=== PATIENT | male | born 1960 | race Caucasian/White ===

== ENCOUNTER → 2017-06-06 | Emergency (ER) | payer BC ==
[~2017-06-06] VITALS: Ht 180.3 cm; Wt 90.7 kg
[~2017-06-06] MED LIST: ACETAMINOPHEN/CODEINE ELIX 120-12 MG/5 ML UDC PO ONE; ALBUTEROL SULF 0.083% NEB SOLN 3 ML NEB NEB STA; CEFTRIAXONE SOD 1 GM VIAL IV ONE; DEXAMETHASONE SOD PHOS 10 MG/1 ML VIAL INJ ONE; IPRATROPIUM BROMIDE 0.02% 2.5 ML NEB NEB STA; PRAVASTATIN PO; SODIUM CHLORIDE 0.9% 1000ML 1,000 ML IV STA; TAMSULOSIN 0.4 MG; WARFARIN PO
[2017-06-06 15:08] LABS: BASOPHILS % 0.2 % (0.0-1.0); HEMATOCRIT 43.8 % (38.2-49.6); HEMOGLOBIN 14.7 g/dL (14.0-18.0); LYMPHOCYTES # (AUTO) 1.3 (1.0-3.2); LYMPHOCYTES % 30.9 % (18.0-39.1); MEAN CORPUSCULAR HEMOGLOBIN 32.4 pg (28-32); MEAN CORPUSCULAR HGB CONC 33.6 g/dL (31-35); MEAN CORPUSCULAR VOLUME 96.5 fL (81-99); MONOCYTES # (AUTO) 0.3 (0.2-0.8); MONOCYTES % 6.2 % (4.4-11.3); NEUTROPHILS # (AUTO) 2.6 (2.1-6.9); NEUTROPHILS % 62.2 % (38.7-80.0); PLATELET COUNT 101 x10e3/uL (140-360); RED BLOOD COUNT 4.54 x10e6/uL (4.3-5.7); RED CELL DISTRIBUTION WIDTH 13.2 % (11.7-14.4)
[2017-06-06 15:19] LABS: ALANINE AMINOTRANSFERASE 13 IU/L (0-55); ALBUMIN 3.3 g/dL (3.5-5.0); ALBUMIN/GLOBULIN RATIO 0.9 (0.8-2.0); ALKALINE PHOSPHATASE 65 IU/L (40-150); ANION GAP 13.9 mmol/L (8-16); BLOOD UREA NITROGEN 17 mg/dL (7-26); BUN/CREATININE RATIO 16 (6-25); CARBON DIOXIDE 28 mmol/L (22-29); CHLORIDE 101 mmol/L (98-107); CREATININE, SERUM 1.09 mg/dL (0.72-1.25); EST GLOMERULAR FILTRATION RATE > 60 ML/MIN (60-); GLUCOSE 116 mg/dL (74-118); POTASSIUM 3.9 mmol/L (3.5-5.1); SODIUM 139 mmol/L (136-145)
[2017-06-06 15:32] LABS: INFLUENZAE A&B ANTIGEN (RAPID) NEGATIVE (NEGATIVE); STREPTOCOCCUS GRP A ANTIGEN NEGATIVE (NEGATIVE)
--- NOTE | 2017-06-06 15:33 | Diagnostic Imaging Report ---
EXAM: XR CHEST 2 VIEWS DATE: 06/06/2017 2:39 PM INDICATION: Cough, fever COMPARISON: None FINDINGS: Lines and Tubes: None Heart and Mediastinum: No acute findings. Lungs and Pleura: Nipple shadows noted. Minimal basilar opacities suggest atelectasis. There is minimal blunting of the costophrenic sulci. Bones and Soft Tissues: Bilateral rib fractures. IMPRESSION: 1. Minimal basilar opacities could represent atelectasis or developing infectious process. 2. Blunting cost phrenic sulci could represent trace effusions or pleural scarring. 3. Bilateral rib fractures, statistically chronic. Correlation with history recommended. Signed by: Dr. Ernesto Burgos MD on 06/06/2017 3:30 PM
== END | disposition home or self-care (01) ==
LOC: ER 14:28
DX: J15.9 Unspecified bacterial pneumonia (principal); J20.9 Acute bronchitis, unspecified; F17.210 Nicotine dependence, cigarettes, uncomplicated
CPT/HCPCS: 36415; 71020; 80053; 83518; 85025; 87070; 87400; 94640; 99283; J0696; J1100; J7030

== ENCOUNTER 2020-08-22 13:45 | Emergency (ER) | payer BC ==
[~2020-08-22] VITALS: Ht 180.3 cm; Wt 90.7 kg
[~2020-08-22 13:45] MED LIST changes: -ACETAMINOPHEN/CODEINE ELIX 120-12 MG/5 ML UDC PO ONE; -ALBUTEROL SULF 0.083% NEB SOLN 3 ML NEB NEB STA; -CEFTRIAXONE SOD 1 GM VIAL IV ONE; -DEXAMETHASONE SOD PHOS 10 MG/1 ML VIAL INJ ONE; -IPRATROPIUM BROMIDE 0.02% 2.5 ML NEB NEB STA; -SODIUM CHLORIDE 0.9% 1000ML 1,000 ML IV STA
[2020-08-22 14:10] LABS: BASOPHILS % 0.3 % (0.0-1.0); EOSINOPHILS # (AUTO) 0.1 (0.0-0.4); HEMATOCRIT 41.8 % (38.2-49.6); HEMOGLOBIN 13.6 g/dL (14.0-18.0); LYMPHOCYTES # (AUTO) 1.4 (1.0-3.2); LYMPHOCYTES % 19.2 % (18.0-39.1); MEAN CORPUSCULAR HEMOGLOBIN 32.2 pg (28-32); MEAN CORPUSCULAR HGB CONC 32.5 g/dL (31-35); MEAN CORPUSCULAR VOLUME 99.1 fL (81-99); MONOCYTES # (AUTO) 0.5 (0.2-0.8); MONOCYTES % 6.7 % (4.4-11.3); NEUTROPHILS # (AUTO) 5.1 (2.1-6.9); NEUTROPHILS % 71.2 % (38.7-80.0); PLATELET COUNT 185 x10e3/uL (140-360); RED BLOOD COUNT 4.22 x10e6/uL (4.3-5.7); RED CELL DISTRIBUTION WIDTH 13.5 % (11.7-14.4)
[2020-08-22 14:18] LABS: INR 1.02
[2020-08-22 14:26] LABS: ALBUMIN 3.4 g/dL (3.5-5.0); ALBUMIN/GLOBULIN RATIO 1.2 (0.8-2.0); ANION GAP 12.1 mmol/L (8-16); CALCIUM 8.5 mg/dL (8.4-10.2); CREATININE, SERUM 1.31 mg/dL (0.72-1.25); POTASSIUM 4.1 mmol/L (3.5-5.1)
[2020-08-22 14:32] LABS: CREATINE KINASE MB 1.2 ng/mL (0-5.0)
[2020-08-22] MEDS ORDERED: SODIUM CHLORIDE 0.9% 1000ML 1,000 ML IV STA (14:42)
[2020-08-22] MEDS ORDERED: SODIUM CHLORIDE 0.9% 50ML 50 ML ONE (18:08)
[2020-08-22] MEDS ORDERED: IOPAMIDOL 370 MG/ML 200 ML INFUS..BTL INJ ONE (18:09)
[2020-08-22 19:20] VITALS: BP 117/73
== END 2020-08-22 19:22 | disposition home or self-care (01) ==
LOC: ER 13:52
DX: J44.9 Chronic obstructive pulmonary disease, unspecified (principal); R09.1 Pleurisy; R91.1 Solitary pulmonary nodule; R07.9 Chest pain, unspecified; I10 Essential (primary) hypertension; I25.2 Old myocardial infarction; E78.5 Hyperlipidemia, unspecified; Z86.711 Personal history of pulmonary embolism; Z90.49 Acquired absence of other specified parts of digestive tract; Z88.0 Allergy status to penicillin; Z88.2 Allergy status to sulfonamides; Z20.822 Contact with and (suspected) exposure to COVID-19
CPT/HCPCS: 36415; 71045; 71260; 80053; 82550; 82553; 83735; 83880; 84484; 85025; 85379; 85610; 85730; 93005; 93971; 99284; J7030; Q9967; U0002

== ENCOUNTER → 2021-06-06 | Outpatient (CLI) | payer BC | LOC: US 07:12 | PROVIDERS: ATTEND Family Medicine | DX: R10.84 Generalized abdominal pain (principal); K42.9 Umbilical hernia without obstruction or gangrene | CPT/HCPCS: 76700 ==

== ENCOUNTER → 2024-03-20 | Outpatient (REF) | payer OTHER | LOC: CT 12:51 | PROVIDERS: ATTEND Family Medicine | DX: R53.82 Chronic fatigue, unspecified (principal); R53.81 Other malaise; F17.200 Nicotine dependence, unspecified, uncomplicated | CPT/HCPCS: 71250 ==

== ENCOUNTER → 2024-06-29 | Outpatient (REF) | payer OTHER ==
[2024-06-29 14:29] LABS: CREATININE, SERUM 0.71 mg/dL (0.72-1.25)
== END ==
LOC: CT 13:31
PROVIDERS: ATTEND Family Medicine
DX: R10.13 Epigastric pain (principal); R63.4 Abnormal weight loss; F17.200 Nicotine dependence, unspecified, uncomplicated
CPT/HCPCS: 36415; 74177; 82565; 84520

== ENCOUNTER → 2025-03-14 | Outpatient (REF) | payer MEDICARE ==
[~2025-03-14] MED LIST changes: +IOPAMIDOL 370 MG/ML 100 ML INFUS..BTL INJ ONE; +SODIUM CHLORIDE 0.9% 100 ML ONE
[2025-03-14 13:26] LABS: EST GLOMERULAR FILTRATION RATE 99.0 ML/MIN (>=60)
== END ==
LOC: CT 12:24
PROVIDERS: ATTEND Internal Medicine Gastroenterology
DX: Z12.11 Encounter for screening for malignant neoplasm of colon (principal); R10.84 Generalized abdominal pain; K29.70 Gastritis, unspecified, without bleeding; K57.30 Diverticulosis of large intestine without perforation or abscess without bleeding; K44.9 Diaphragmatic hernia without obstruction or gangrene; R68.81 Early satiety; K22.89 Other specified disease of esophagus; R63.4 Abnormal weight loss
CPT/HCPCS: 36415; 74174; 82565; 84520; J7050; Q9967